=== PATIENT | female | born 1965 | race Caucasian/White ===

== ENCOUNTER 2020-05-19 14:10 | Emergency (ER) | payer BC, SELFPAY ==
[2020-05-19 14:19] VITALS: BP 124/66; PULSE 80; RESP 14; TEMP 36.8; O2SAT 100
--- NOTE | 2020-05-19 14:30 | DI.RAD_ITS ---
EXAM: XR KNEE LT 3V AP,LAT,LACIE CLINICAL HISTORY: Left knee injury, R/O fracture. TECHNIQUE: 2D digital imaging was performed. COMPARISON: No exams were available for comparison FINDINGS: There is no evidence of fracture nor obvious joint effusion evident on this three view study. No nelson nt space narrowing. No significant osseous lesions. No osteochondral defects. Tibial plateau appea rs unremarkable. IMPRESSION: No obvious fracture or joint effusion evident on this three view study of the left knee. DATA REPOSITORY: RADIATION DOSE DELIVERED:
--- NOTE | 2020-05-19 14:41 | ED.GENADUL_ITS ---
Discharge Plan Disposition Patient Disposition: HOME Condition: Stable Discharge Details Clinical Impression: MCL sprain of left knee Primary Care Provider: Linda,Local ED Provider: Tanisha Santo Home Meds and New Rx's Prescriptions: Continued zinc 50 mg Tablet 10 mg PO DAILY RF: 0 multivitamin Capsule 1 cap PO DAILY RF: 0 gabapentin 300 mg Tablet 300 mg PO BID RF: 0 cholecalciferol (vitamin D3) [Vitamin D3] 125 mcg (5,000 unit) Tablet 125 mcg PO DAILY RF: 0 Discharge Instructions Instructions: Knee Sprain (ED) Additional Instructions: Rest, ice, compression, elevation to the left knee. Keep your hands and toes warm. Please follow-up with your primary care/dispute resolution specialist upon returning to [place]. Please take Tylenol or Ibuprofen with food every 4- 6 hours as needed for pain and swelling. Return to the ED for any black fingers or toes, significant shortness of breath, chest pain, significant swelling in your left knee problems with circulation or any other concerns. Your x-ray today was within normal limit. Stay off of left knee as much as possible over the next 2 to 3 days, weightbearing advance as tolerated. Discharge Data Discharge Date/Time-TO BE ENTERED AT DEPARTURE: 05/19/20 16:05 Medical Decision Making 55-year-old female presents to the ED chief complaint of left knee pain. Patient states that she was [place]shoeing in [place] area when she fell while going downhill, she bruised that she fell over to her left side, she felt her knee got a placement return back into place. They then had a long extrication time, she was given fentanyl IV prior to arrival by EMS, warming measures were in place to her hands and toes she does have some pink toes noted upon initial exam, she does have bilateral sensation intact and movement. Dorsal pedal pulses intact her left foot. No other complaints at this time. She does have a past surgical history of ACL repair to her right knee. No other significant past medical history. 1448: At this time warming measures are in place, x-ray ordered. Patient is a PUI at this time due to being in town from [place] yesterday. Imaging protocol: XR Left knee. Views: 3 views. COMPARISON: No relevant prior studies available. FINDINGS: Bones/joints: Normal. Soft tissues: Normal. IMPRESSION: No evidence for acute posttraumatic abnormality. Thank you for allowing us to participate in the care of your patient. Dictated and Authenticated by: Maryjane Thomas MD EXAM: XR KNEE LT 3V AP,LAT,LACIE CLINICAL HISTORY: Left knee injury, R/O fracture. TECHNIQUE: 2D digital imaging was performed. COMPARISON: No exams were available for comparison FINDINGS: There is no evidence of fracture nor obvious joint effusion evident on this three view study. No joint space narrowing. No significant osseous lesions. No osteochondral defects. Tibial plateau appears unremarkable. IMPRESSION: No obvious fracture or joint effusion evident on this three view study of the left knee. Plan is to place patient in a hinged knee brace give crutches follow-up at her home state in [place]. Will discuss RICE procedures at home with patient. HPI General Mode of arrival: EMS . Date/Time Provider Initiated Documentation: 05/19/20 14:25 . Limitations to Documentation: no limitations . Information obtained by: patient . HPI Narrative: 55-year-old female presents to the ED chief complaint of left knee pain. Patient states that she was [place]sh[place]ing [place] when she fell while going downhill, she bruised that she fell over to her left side, she felt her knee got a placement return back into place. They then had a long extrication time, she was given fentanyl IV prior to arrival by EMS, warming measures were in place to her hands and toes she does have some pink toes noted upon initial exam, she does have bilateral sensation intact and movement. Dorsal pedal pulses intact her left foot. No other complaints at this time. She does have a past surgical history of ACL repair to her right knee. No other significant past medical history. Related Data Home Medications Medication Instructions Recorded Confirmed cholecalciferol (vitamin D3) 125 mcg PO DAILY 05/19/20 05/19/20 [Vitamin D3] gabapentin 300 mg PO BID 05/19/20 05/19/20 multivitamin 1 cap PO DAILY 05/19/20 05/19/20 zinc 10 mg PO DAILY 05/19/20 05/19/20 Allergies Allergy/AdvReac Type Severity Reaction Status Date / Time No Known Allergies Allergy Unverified 05/19/20 14:24 General Stated Complaint: Orthopedic GLORIA: 3 Review of Systems All systems reviewed & are unremarkable except as noted in HPI and below Musculoskeletal Musculoskeletal: Denies deformity, Reports arthralgias (Left medial knee joint pain.), Denies joint swelling and Denies limited range of motion (Pain with ambulation, passive range of motion intact.) Integumentary/Breasts Skin/Breast: Reports erythema (Bilateral toes, bilateral hands) [facility] Social History Smoking/Tobacco Use Status: Never Smoking risk assessment performed?: Yes Alcohol Intake: never Substance use type: does not use Do you feel safe at home: Yes Do you feel safe in your relationship?: Yes Exam Narrative Exam Narrative: Constitutional: Alert and oriented x3. Appears stated age. Nor mal body habitus. Patient appears anxious and tearful. Head: Normocephalic, no trauma. Eyes: Pupils PERRLA, Red reflex noted, EOM's intact. Eyelids symmetrical without lesions, discharge, or swelling. ENT: Bilateral TM's WNL, External ear normal to inspection, no mastoid TTP, swelling, or erythema, Nasal turbinates WNL, no nasal discharge. Normal dentition, Posterior pharynx WNL, no exudate. Chest: RRR, Normal S1, S2, distal pulses intact. Resp: Lungs clear to auscultation bilaterally, no wheezes, rales, or rhonchi. Musculoskeletal: Left knee medial joint tenderness no obvious deformity or swelling, passive range of motion intact. Skin: Redness noted to the bilateral toes, redness noted to her bilateral hands. Sensation intact. Capillary refill less than 2 sec. Neurologic: Cranial nerves II-XII intact. Alert and oriented x 3. DTR's intact. Hematologic/Lymphatic: No ecchymosis, no lymphadenopathy. Course Vital Signs Vital signs: Vital Signs Temperature 36.8 C 05/19/20 14:19 Pulse 80 05/19/20 14:19 Respiratory Rate 14 05/19/20 14:19 Blood Pressure 124/66 05/19/20 14:19 Pulse Oximetry 100 05/19/20 14:19 Temperature 36.8 C 05/19/20 14:19 Temperature Source Skin 05/19/20 14:19 Pulse 80 05/19/20 14:19 Respiratory Rate 14 05/19/20 14:19 Respiratory Effort Non-Labored 05/19/20 14:26 Blood Pressure 124/66 05/19/20 14:19 Blood Pressure Position Supine 05/19/20 14:19 Pulse Oximetry 100 05/19/20 14:19 Oxygen Delivery Method Room Air 05/19/20 14:19 Oxygen Flow Rate 0 05/19/20 14:19 Pain Level 4 05/19/20 14:19
[2020-05-19 15:15] VITALS: PULSE 79; RESP 11; O2SAT 97
[2020-05-19 15:20] VITALS: PULSE 78; RESP 12; O2SAT 98
--- NOTE | 2020-05-19 15:23 | DI.VRAD_ITS ---
PROCEDURE INFORMATION: Exam: XR Left Knee Exam date and time: 05/19/2020 3:09 PM Age: 55 years old Clinical indication: Injury or trauma; Other: R/O FX; Sprain or strain; Patella or knee; Injury date: Today; Patient HX: Left knee injury R/O fracture TECHNIQUE: Imaging protocol: XR Left knee. Views: 3 views. COMPARISON: No relevant prior studies available. FINDINGS: Bones/joints: Normal. Soft tissues: Normal. IMPRESSION: No evidence for acute posttraumatic abnormality. Dictated and Authenticated by: Maryjane Thomas MD. Ordering:BETH Garay MD
[2020-05-19 15:30] VITALS: PULSE 76; RESP 13; O2SAT 96
[2020-05-19 15:40] VITALS: PULSE 71; RESP 7; O2SAT 97
[2020-05-19 15:50] VITALS: PULSE 70; RESP 14; O2SAT 97
== END 2020-05-19 16:05 | disposition home or self-care (01) ==
PROVIDERS: Emergency Provider Registered Nurse Emergency
DX: S83.412A Sprain of medial collateral ligament of left knee, initial encounter (principal); W18.30XA Fall on same level, unspecified, initial encounter; Y93.29 Activity, other involving ice and snow
CPT/HCPCS: 29505; 73562; 99283